=== PATIENT | female | born 1940 | race Caucasian/White ===

== ENCOUNTER → 2017-05-06 | Outpatient (CLI) | payer OTHER, MEDICARE ==
[~2017-05-06] MED LIST: ADULT LOW DOSE81 MG PO; ALBUTEROL INH; CARVEDILOL12.5 MG PO; CITRACAL + BON1 EACH PO; CO Q-10100 MG PO; COZAAR 25MG TAB25 M1 PO; COZAAR100 MG PO; CRESTOR10 MG PO; CRESTOR20 MG PO; GLUCOSAMINE1000 MG PO; HYDROCODONE-AP1 EAC6 PO; IBUPROFEN 800800 M1 PO; LASIX 20 MG TAB20 MG PO; NORVASC5 MG PO; PLAVIX 75 MG TA75 MG PO; RANITIDINE 150150 MG PO; SAVELLA12.5 MG PO; TOPROL XL50 MG PO
== END ==
LOC: NUC 08:06
DX: I25.10 Atherosclerotic heart disease of native coronary artery without angina pectoris (principal); Z82.49 Family history of ischemic heart disease and other diseases of the circulatory system

== ENCOUNTER → 2018-05-12 | Outpatient (CLI) | payer OTHER, MEDICARE ==
--- NOTE | ~2018-05-12 | 2DMMODE ---
[facility] [employer] [place] [address] 2 D/M-MODE ECHOCARDIOGRAM Name: FELISHA VICENTE Room #: REG [facility]#: [id number] Admission: 05/12/18 Attend Phys: Jim Tolentino MD Discharge: Date of : 36 Date of Service: 05/12/18 1419 Report #: [id number] THIS REPORT FOR: //name// APPROVED REPORT Study performed: 05/12/2018 13:00:45 EXAM: Comprehensive 2D, Doppler, and color-flow Echocardiogram Patient Location: Echo lab Status: routine BSA: 1.55 HR: 60 bpm BP: 151/60 mmHg Other Information Study Quality: Good Indications CAD Hypertension/HDD 2D Dimensions RVDd: 24.57 mm LVEF(%): 69.73 (>50%) IVSd: 12.65 (7-11mm) LVOT Diam: 20.95 (18-24mm) LVDd: 37.93 mm PWd: 9.11 (7-11mm) Ascending Ao: 27.62 (22-36mm) LVDs: 23.28 (25-40mm) Aortic Root: 28.15 mm IVC: 18.00 mm Vo's LVEF: 69.73 % Volumes Left Atrial Volume (Systole) Single Plane 4CH: 37.04 mL Single Plane 2CH: 41.24 mL LA ESV Index: 29.00 mL/m2 Aortic Valve AoV Peak Brooks.: 1.55 m/s AO Peak Gr.: 9.60 mmHg LVOT Max P.93 mmHg LVOT Max V: 0.99 m/s BASIL Vmax: 2.20 cm2 Mitral Valve E/A Ratio: 0.6 MV Decel. Time: 300.36 ms [facility] [address] [place] [address] 2 D/M-MODE ECHOCARDIOGRAM Name: FELISHA VICENTE Room #: [facility]#: [id number] Admission: 05/12/18 Attend Phys: Jim Tolentino MD Discharge: Date of : 36 Date of Service: 05/12/18 1419 Report #: [id number] MV E Max Brooks.: 0.90 m/s MV A Brooks.: 1.42 m/s MV PHT: 87.10 ms IVRT: 141.87 ms Pulmonary Valve PV Peak Brooks.: 1.16 m/s PV Peak Gr.: 5.41 mmHg Pulmonary Vein P Vein S: 0.54 m/s P Vein A: 0.49 m/s P Vein D: 0.28 m/s P Vein A Dur.: 141.9 msec P Vein S/D Ratio: 1.93 Tricuspid Valve TR Peak Brooks.: 2.44 m/s RAP Estimate: 5.00 mmHg TR Peak Gr.: 23.88 mmHg PA Pressure: 29.00 mmHg Left Ventricle The left ventricle is normal size. There is normal left ventricular wall thickness. The left ventricular systolic function is normal. The left ventricular ejection fraction is within the normal range. LVEF is 60-65%. Mild diastolic dysfunction is present (impaired relaxation pattern). Right Ventricle The right ventricle is normal size. The right ventricular systolic function is normal. Atria The left atrium size is normal. The right atrium size is normal. Aortic Valve Aortic valve is mildly calcified. No aortic regurgitation is present. There is no aortic valvular stenosis. Mitral Valve Moderate mitral annular calcification. Trace mitral regurgitation. No evidence of mitral valve stenosis. Tricuspid Valve The tricuspid valve is normal in structure. Trace tricuspid regurgitation. PAP is estimated at 29 mmHg. Pulmonic Valve [address] [address] 2 D/M-MODE ECHOCARDIOGRAM Name: FELISHA VICENTE Room #: REG [facility]#: [id number] Admission: 05/12/18 Attend Phys: Jim Tolentino MD Discharge: Date of : 36 Date of Service: 05/12/18 1419 Report #: [id number] The pulmonary valve is normal in structure. Mild pulmonic regurgitation. Great Vessels The aortic root is normal in size. IVC is normal in size and collapses >50% with inspiration. Pericardium There is no pericardial effusion. <Conclusion> The left ventricle is normal size. There is normal left ventricular wall thickness. The left ventricular systolic function is normal. Mild diastolic dysfunction is present (impaired relaxation pattern). The right ventricle is normal size. The left atrium size is normal. Aortic valve is mildly calcified. Moderate mitral annular calcification. Trace mitral regurgitation. Trace tricuspid regurgitation. PAP is estimated at 29 mmHg. <ELECTRONICALLY SIGNED> By: Jim Tolentino MD 05/12/18 1419 1419 1419 Jim Tolentino MD /INF
== END ==
LOC: CV 07:02
DX: I25.10 Atherosclerotic heart disease of native coronary artery without angina pectoris (principal); I10 Essential (primary) hypertension; I34.8 Other nonrheumatic mitral valve disorders

== ENCOUNTER 2018-06-20 11:55 | Emergency (ER) | payer OTHER, MEDICARE ==
[~2018-06-20] VITALS: Ht 152.4 cm; Wt 65.8 kg
[2018-06-20] MEDS ORDERED: MORPHINE SULFAT15 M3 PO (12:21)
== END 2018-06-20 12:53 | disposition home or self-care (01) ==
LOC: ER 11:55
DX: S81.802A Unspecified open wound, left lower leg, initial encounter (principal); I25.10 Atherosclerotic heart disease of native coronary artery without angina pectoris; E78.5 Hyperlipidemia, unspecified; M79.7 Fibromyalgia; I11.0 Hypertensive heart disease with heart failure; I50.32 Chronic diastolic (congestive) heart failure; I65.29 Occlusion and stenosis of unspecified carotid artery; I73.9 Peripheral vascular disease, unspecified; Z98.890 Other specified postprocedural states; Z90.49 Acquired absence of other specified parts of digestive tract; W20.8XXA Other cause of strike by thrown, projected or falling object, initial encounter; Y92.89 Other specified places as the place of occurrence of the external cause; Y93.89 Activity, other specified; Y99.8 Other external cause status

== ENCOUNTER → 2019-05-04 | Outpatient (CLI) | payer OTHER, MEDICARE ==
[~2019-05-04] MED LIST changes: +MORPHINE SULFAT15 M3 PO
== END ==
LOC: NUC 11:39
DX: I25.10 Atherosclerotic heart disease of native coronary artery without angina pectoris (principal); I11.0 Hypertensive heart disease with heart failure; I50.9 Heart failure, unspecified; I44.7 Left bundle-branch block, unspecified; E78.5 Hyperlipidemia, unspecified; I73.9 Peripheral vascular disease, unspecified; Z87.891 Personal history of nicotine dependence; Z79.899 Other long term (current) drug therapy; Z88.1 Allergy status to other antibiotic agents; Z88.8 Allergy status to other drugs, medicaments and biological substances

== ENCOUNTER 2019-05-18 11:32 | Inpatient (IN) | payer OTHER, MEDICARE ==
[~2019-05-18] VITALS: Ht 154.9 cm; Wt 52.6 kg
[~2019-05-18 11:32] MED LIST changes: +CRESTOR40 MG PO
[2019-05-18 11:33] VITALS: BP 125/44
[2019-05-18 11:52] LABS: URINE BILIRUBIN NEGATIVE (Negative); URINE BLOOD 1+ (Negative); URINE CLARITY SL CLOUDY; URINE GLUCOSE-RANDOM* NEGATIVE (Negative); URINE KETONES NEGATIVE (Negative); URINE LEUKOCYTES-REFLEX TRACE (Negative); URINE PROTEIN (DIPSTICK) 1+ (Negative); URINE UROBILINOGEN 0.2 E.U./dl (0.2-1.0)
[2019-05-18 11:53] LABS: URINE COLOR DARK YELLOW; URINE NITRITE-REFLEX POSITIVE (Negative)
[2019-05-18] MEDS ORDERED: BACTRIM DS TAB1 EACH PO (11:55)
[2019-05-18 12:00] LABS: AMORPHOUS URATES Few /LPF (None Seen); HYALINE CASTS 0-3 Few /LPF (None Seen); SQUAMOUS None Seen /LPF (0-3); URINE RBC 0-2 Rare /HPF (0-2); URINE WBC-REFLEX 0-5 Rare /HPF (0-5)
[2019-05-18 12:16] LABS: HEMATOCRIT 26.8 % (37.0-47.0); HEMOGLOBIN 8.6 gm/dL (12.0-15.0); MCH 32.5 pg (26.0-34.0); MCHC 32.2 g/dL (28.0-37.0); MCV 100.9 fL (80.0-100.0); RBC 2.65 mil/uL (4.20-5.00); RDW 15.3 % (10.5-14.5); WBC 24.3 thou/uL (4.0-11.0)
[2019-05-18 12:25] LABS: ANION GAP 15 mmol/L (7-16); BUN 82 mg/dL (7-18); CALCIUM 8.7 mg/dL (8.5-10.1); CHLORIDE 110 mmol/L (98-107); CO2 15 mmol/L (21-32); CREATININE 3.9 mg/dL (0.6-1.0); GLUCOSE 89 mg/dL (74-106); POTASSIUM 4.7 mmol/L (3.5-5.1); SODIUM 140 mmol/L (136-145)
[2019-05-18 12:33] LABS: TROPONIN-I <0.06 ng/mL (<0.06)
[2019-05-18 13:20] VITALS: BP 100/41
[2019-05-18] MEDS ORDERED: IBUPROFEN 800800 M1 PO (13:43)
[2019-05-18 14:05] VITALS: BP 111/50
[2019-05-18 14:48] LABS: URINE POTASSIUM-RANDOM* 30.4 mmol/L
--- NOTE | 2019-05-18 18:40 | NUR ---
PT CARE ASSUMED APPROX 1400 FROM ED. PT ALERT AND ORIENTED X4. DENIES PAIN AND SOA. VSS. IVF RUNNING. CHANGED AND THEN RESTARTED. UP WITH STEADY GAIT. PT REPORTS VISION PROBLEMS BUT NOT A SIGNIFICANT DEFICIT. SHE REPORTS "I STILL DRIVE." ORDERS IN. SPOUSE AT BEDSIDE ON ARRIVAL. NO ONE AT BEDSIDE AT THIS TIME. PT DENIES QUESTIONS OR CONCERNS REGARDING ADMISSION OR POC. BS MANAGED WITH SSI. NO DISTRESS NOTED.
[2019-05-18 19:51] VITALS: BP 114/36
[2019-05-19 00:50] VITALS: BP 117/41
[2019-05-19 03:46] VITALS: BP 139/42
--- NOTE | 2019-05-19 04:33 | NUR ---
RECEIVED PT'S CARE AT 1900; PT. ON BED; DAUGHTER AT THE BED SIDE; AOX4; C/O HEADACHE; ACETAMINOPHEN GIVEN PER MORNING NURSE; PAIN RE-ASSESSMENT PT. ST. NO HEADACHE; DURING ASSESSMENT NO C/O PAIN; DENIES SOB; ST. ABLE TO AMBULATE WITHOUT AIDS; EDUCATED ABOUT FALL PREVENTION; ST. UNDERSTANDING; REQUESTED PRN SLEEPING MEDICATION; GIVEN; ABLE TO REST MOST OF THE NIGHT WITH EYES CLOSE; SCD'S APPLIED; ASSESSMENT CHARGED; FOLLOWING POC; MONITORING; WILL PASS ON REPORT.
[2019-05-19 05:58] LABS: FIBRINOGEN 244.2 mg/dL (210-360); INR 1.1; PROTIME 11.7 Seconds (9.3-11.4)
[2019-05-19 08:24] LABS: ABSOLUTE RETIC COUNT 0.0325 10^6/uL; OBSERVED RETIC COUNT 1.49 % (0.6-2.6)
[2019-05-19 08:25] LABS: % SATURATION 59 % (20-39); IRON 114 ug/dL (50-170); TIBC 192 ug/dL (250-450)
[2019-05-19 08:28] LABS: ALBUMIN 2.6 g/dL (3.4-5.0); CALCIUM 7.5 mg/dL (8.5-10.1); CREATININE 3.5 mg/dL (0.6-1.0); POTASSIUM 4.2 mmol/L (3.5-5.1); TOTAL BILIRUBIN 0.1 mg/dL (<0.1-1.0); TOTAL PROTEIN 5.4 g/dL (6.4-8.2)
--- NOTE | 2019-05-19 08:29 | EKG ---
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1940 Requested By: Guzman Graham Order Number: [id number] MD: Lennox Walters Measurements Intervals [place] Rate: 55 P: 62 PA: 205 QRS: -28 QRSD: 160 T: 89 QT: 482 QTc: 461 Interpretive Statements Sinus rhythm Left bundle branch block Compared to ECG 12/08/2014 19:53:29 No significant changes Electronically Signed On 05-19-2019 8:29:46 CDT by Lennox Walters [email or web address] ��������������������������������������������� <ELECTRONICALLY SIGNED> ���������������������������������������� By: Lennox Walters MD, [facility] ��������������������������������������������� 05/19/19 0829 1155 1155 Lennox Walters MD, FAC /EPI
[2019-05-19 08:53] LABS: FOLIC ACID 11.2 ng/mL (8.6-58.9)
[2019-05-19 08:58] VITALS: BP 116/38
[2019-05-19 10:06] LABS: HEMOGLOBIN 7.5 g/dL (11.1-15.9)
[2019-05-19 12:30] VITALS: BP 126/45
--- NOTE | 2019-05-19 14:12 | NUR ---
AAOX4. DR. MORA HAS OKAYED TRANSFER TO MED SURG. WILL DC TELEMETRY. REPORT CALLED TO Gerry PECK RN. PATIENT HAS NOTIFIED FAMILY. WILL TX BY IOANA.
--- NOTE | 2019-05-19 15:16 | NUR ---
PT TRANSFERRED FROM TO ROOM 427 AT 14:40 IN STABLE CONDITION VIA WHEELCHAIR. VSS. DENIES PAIN OR CONCERNS AT THIS TIME. ASSESSMENT CHARTED. A&O,X4. UP AD ALEXIS TO BATHROOM. PT USED BATHROOM UPON ARRIVAL AND CURRENTLY IN BED. WILL CONTINUE TO MONITOR UNTIL EOS.
[2019-05-19 21:20] VITALS: BP 140/44
--- NOTE | 2019-05-20 04:49 | NUR ---
ASSUMED CARE AT 1900, ASSESSMENT COMPLETED. PT DENIES PAIN, NAUSEA, OR SOB WHILE AT REST. SHE DOES REPORT MID-STERNUM PAIN WITH RIGOROUS ACTIVITY, SUCH USING STAIRS. BLE HAVE 1+ MILDLY PITTING EDEMA, AND LEGS ARE TENDER WHEN TOUCHED. IV BICARB INFUSING OVERNIGHT; TUBING WAS LEAKING AFTER PT GOT UP TO TOILET DURING THE NIGHT, CHANGED J-LOOP AND DRESSING, CHANGED IV TUBING, AND NO FURTHER ISSUES. UA CULTURE CAME BACK NEGATIVE FOR BACTERIAL GROWTH. NO OTHER CONCERNS, WILL CONTINUE TO MONITOR.
[2019-05-20 05:06] LABS: HEMATOCRIT 20.6 % (37.0-47.0); RBC 2.08 mil/uL (4.20-5.00)
[2019-05-20 05:07] LABS: ALBUMIN 2.6 g/dL (3.4-5.0); CREATININE 2.4 mg/dL (0.6-1.0); PHOSPHORUS 2.4 mg/dL (2.5-4.9); POTASSIUM 3.5 mmol/L (3.5-5.1)
[2019-05-20 05:09] LABS: HEMOGLOBIN 6.7 gm/dL (12.0-15.0); MCH 32.2 pg (26.0-34.0); MCHC 32.5 g/dL (28.0-37.0); RDW 14.6 % (10.5-14.5)
[2019-05-20 05:10] VITALS: BP 135/36
[2019-05-20 07:49] VITALS: BP 156/38
--- NOTE | 2019-05-20 11:04 | NUR ---
ASSESMENT COMPLETED. VSS. A/O. DENIES PAIN. NO NOTED SOA. NO NV. PT RESTING IN BED APPEARS COMFORTABLE. WILL CONT. TO MONITOR.
--- NOTE | 2019-05-20 13:10 | HC ---
[facility] [place] [address] CONSULTATION Name: FELISHA VICENTE Room #: 427-P ADM IN M.R.#: [id number] Admission: 05/18/19 ������������������ Attend Phys: Shamir Naranjo Discharge: ������������������ Date of : 38 Report #: [id number] THIS REPORT FOR: //name// CC: Jim Tolentino MD HISTORY OF PRESENT ILLNESS: The patient is a very pleasant, but slightly sleepy 78-year-old, because it is 7:15 in the morning, who was admitted for symptoms of UTI. We are consulted because of lymphocytosis. Yesterday on her lab, her hemoglobin was 8.6, white count 24.3, platelets 315. Note that the differential is pending. We have outside lab, though the patient was not aware of these abnormalities, from Dr. Cowna's office from 11/30/2017 with a white count of 15.2 with an absolute lymphocyte count elevated at 9900, also at that her creatinine was 0.79, hemoglobin 12.4, platelets 276. At a later date on 05/05/2019, white count was 27,000; hemoglobin 9.6; MCV 100; platelets 364; creatinine 2.84. Total bilirubin was normal at less than 0.2 and on the differential they talked about lymphocytosis consistent with both mature and immature appearing lymphocytes. They suggested flow cytometry. They also mentioned the macrocytic anemia. Thyroid panel at that time was normal. The patient states that she has been feeling poorly for about the last month or so. Denies any fevers or chills. Does feel sort of tired, not really shortness of breath. No trouble moving her air. No mouth sores. No trouble swallowing, no real abdominal pain. Appetite has been off a little bit. No arm or leg swelling. No new skin rashes. She says no one else has been sick at home, specifically her . SOCIAL HISTORY: She is retired, used to work at [employer] in the office. Yet to clarify smoking and alcohol history in the past. Did have a dog that at home a while back. PAST MEDICAL HISTORY: Reportedly includes peripheral arterial disease with stents by Dr. Wally Giordano, history of a stress test maybe about a month ago with Dr. Jim Tolentino who did not like changing any of her medications. Also, history of hypertension, hyperlipidemia, fibromyalgia, possible chronic diastolic heart failure, history of lumbar vertebral fusion in 1994. Also, section in the past, cholecystectomy in 1983. MEDICATIONS: At this time in the hospital include aspirin 81 mg daily, clopidogrel 75 daily, carvedilol 12.5 b.i.d., insulin on a sliding scale, heparin 5000 units t.i.d., Tylenol p.r.n., Ambien 5 mg at bedtime p.r.n., MiraLax 17 grams daily, nitroglycerin p.r.n., Zofran p.r.n. [address] [address] CONSULTATION Name: FELISHA VICENTE Room #: 427-P [facility] IN M.R.#: [id number] Admission: 05/18/19 ������������������ Attend Phys: Shamir Naranjo Discharge: ������������������ Date of : 36 Report #: [id number] LABORATORY DATA: Here in the hospital includes BUN of 82, creatinine of 3.9, glucose of 201. Lactic acid 0.7. INR 1.1, protime 11.7, fibrinogen 244.2. White count 24.3, hemoglobin 8.6, MCV 100.9, RDW 15.3, platelets 315. Differential pending. Retic count pending. Flow cytometry pending, ferritin pending, B12 pending, folate pending. Erythropoietin pending. UA showed positive for nitrite, 10-30 bacteria, rare white cell. PHYSICAL EXAMINATION: GENERAL: The patient appears her stated age. VITAL SIGNS: Height is 5 feet 1 inch, 154.9 cm. Weight 116 pounds or 52.7 kilograms. Blood pressure is 139/42, O2 sat 96%, respirations 18, pulse 64, temperature afebrile at 97.9. MOOD: The patient is pleasant. NEUROLOGIC: Speech and thought pattern normal for a sleepy 78-year-old, moving extremities. Face is symmetrical. LUNGS: Clear anteriorly without any wheezes, rhonchi, is symmetrical, unlabored. HEART: Appears regular rate. No definite murmur. LYMPHATICS: No enlarged lymph nodes in the supraclavicular, cervical, right axillary region. There may be a small one in the left axilla. ABDOMEN: Slightly obese. No masses. EXTREMITIES: Without clubbing, cyanosis. There may be trace edema. ASSESSMENT AND PLAN: 1. 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 Flow cytometry pending. We will also check IgG level. As an outpatient, could consider checking cytogenetics and also CT scans. 2. Anemia, maybe related to probable chronic lymphocytic leukemia or renal insufficiency. We will check iron panel, B12, folate, erythropoietin level. We will also check liver function test to rule out hemolysis, though outpatient total bilirubin recent was normal. 3. Chronic kidney disease, creatinine of 3.9, renal ultrasound does not appear to show obstruction. Defer to Dr. Christianson in Renal. 4. Possible urinary tract infection. Defer antibiotics to others. 5. Hyperlipidemia. Defer to others. 6. Chronic diastolic heart failure. Defer to others. 7. Fibromyalgia history. Defer to others. 8. Coronary artery disease with stents, on aspirin and also on Coreg. Defer to others. 9. Peripheral arterial disease with stents in the past. Defer to others. We will follow with you. ��������������������������������������������� <ELECTRONICALLY SIGNED> ���������������������������������������� By: Yann Butterfield MD ��������������������������������������������� 05/20/19 1310 0729 0846 Yann Butterfield MD /nt
[2019-05-20 16:45] VITALS: BP 145/37
[2019-05-20 19:17] VITALS: BP 141/39
--- NOTE | 2019-05-21 00:47 | NUR ---
ASSESSMENT COMPLETED. PT IS UP AD ALEXIS IN ROOM. DENIES ANY DYSPNEA OR DIZZINESS. NO S/SX OFANY DISTRESS.IVF INFUSING VIA LAC.AFEBRILE. MONITORING LABS.WILL CONTINUE WITH POC TILL EOS.
[2019-05-21 05:07] VITALS: BP 126/40
[2019-05-21 05:43] LABS: WBC 20.3 thou/uL (4.0-11.0)
[2019-05-21 05:45] LABS: HEMATOCRIT 20.7 % (37.0-47.0); HEMOGLOBIN 6.8 gm/dL (12.0-15.0); MCH 32.9 pg (26.0-34.0); MCHC 32.7 g/dL (28.0-37.0); MCV 100.8 fL (80.0-100.0); RBC 2.06 mil/uL (4.20-5.00); RDW 14.8 % (10.5-14.5)
[2019-05-21 05:59] LABS: ALBUMIN 2.4 g/dL (3.4-5.0); CREATININE 1.6 mg/dL (0.6-1.0); PHOSPHORUS 1.8 mg/dL (2.5-4.9); POTASSIUM 3.4 mmol/L (3.5-5.1)
[2019-05-21 07:24] VITALS: BP 144/39
--- NOTE | 2019-05-21 10:42 | HC ---
[facility] [place] [address] CONSULTATION Name: FELISHA VICENTE Room #: 427-P [facility] IN M.R.#: [id number] Admission: 05/18/19 ������������������ Attend Phys: Shamir Naranjo Discharge: ������������������ Date of : 38 Report #: [id number] THIS REPORT FOR: //name// CC: Ann Naranjo DATE OF SERVICE: 05/18/2019 REASON FOR PRESENTATION: Abnormal labs. REASON FOR CONSULTATION: Elevated creatinine. HISTORY OF PRESENT ILLNESS: This is a very well-known patient from a previous admission. She is known to have hypertension, peripheral vascular disease, coronary artery disease. She had an acute kidney injury back in 2016 and this has resolved. She recently reported to her primary care physician earlier this week that she has some urgency, frequency, weakness, nausea, frequent diarrhea. Laboratory values were tested and she was started on Bactrim. Followup labs revealed that the patient has an elevated white blood cell count and she was advised to come to the emergency room. After starting Bactrim, creatinine was found to be elevated at 3.9 mandating Nephrology consultation. The patient currently still has some frequency and urgency. She denies urinary retention. She does have some mild fever, no chills or rigors. No nausea or vomiting. She reported occasional diarrhea in the last few days. PAST MEDICAL HISTORY: 1. Hypertension. 2. Peripheral vascular disease. 3. Coronary artery disease. 4. Multiple coronary stents. 5. Post-hysterectomy. 6. Post-abdominal surgery with removal of a sigmoid mass. 7. Post bilateral stent. 8. Fibromyalgias. 9. Lumbar fusions. MEDICATIONS: 1. Aspirin. 2. Bactrim. 3. Losartan. 4. Lasix. 5. Carvedilol. 6. Amlodipine. 7. Crestor. SOCIAL HISTORY: She denies drug or alcohol abuse. She is retired. [facility] [address] [place] [address] CONSULTATION Name: FELISHA VICENTE Room #: 427-P [facility] IN .R.#: [id number] Admission: 05/18/19 ������������������ Attend Phys: Shamir Naranjo Discharge: ������������������ Date of : 38 Report #: [id number] FAMILY HISTORY: Significant for hypertension. REVIEW OF SYSTEMS: GENERAL: Significant for weakness and lethargy. CARDIOVASCULAR: No chest pain or palpitation. PULMONARY: No cough or hemoptysis. GASTROINTESTINAL: Significant for nausea, decreased oral intake, diarrhea. GENITOURINARY: As per history of present illness. SKIN: Chronic bilateral lower extremity edema. PHYSICAL EXAMINATION: GENERAL: When evaluated this evening, the patient was alert and oriented, in no apparent distress. VITAL SIGNS: Most recent set of vitals showed that the patient's pulse is 59, blood pressure 100/41. HEAD AND NECK: No jugular venous distention. CHEST: No crackles. CARDIOVASCULAR: No rub detected. ABDOMEN: Soft, nontender. LOWER EXTREMITIES: Chronic lower extremity edema. LABORATORY VALUES: Reviewed. Sodium is 140, potassium is 4.7, chloride is 110, carbon dioxide is 15, BUN is 82, creatinine is 3.5. White blood cell count is 24,000. UA with positive nitrite and white blood cell count. ASSESSMENT, IMPRESSION AND PLAN: 1. Acute kidney injury due to hypotension, combination of losartan and Bactrim. 2. Urinary tract infections. 3. Hypertension. 4. Peripheral vascular disease. 5. Abdominal surgery requiring bilateral ureteral stents and cystoscopy. This has happened in 2016. 6. The patient's acute kidney injury is well explained by the hypotension, the fact that she is on diuretics, losartan, Bactrim. I agree with holding all of her blood pressure medications. Appropriate acute kidney injury workup has been initiated. 7. The patient was started on antibiotic, pending her cultures. 8. Continue to avoid nephrotoxins. 9. Follow urine output. 10. Primary team is addressing her leukocytosis, pending further cultures. ��������������������������������������������� <ELECTRONICALLY SIGNED> ���������������������������������������� By: Jim Christianson MD ��������������������������������������������� 05/21/19 [phone] Jim Christianson MD /nt
--- NOTE | 2019-05-21 11:12 | NUR ---
Assume care of pt at 0700. Pt a&ox4. Up ad lenin in room. IVF infusing. Denies pain. Hg 6.8. Pt asymptomatic. Call light within reach. Pt calls appropriately. Will continue to monitor.
[2019-05-21 16:47] VITALS: BP 149/49
[2019-05-21 19:25] VITALS: BP 139/37
--- NOTE | 2019-05-22 02:30 | NUR ---
ASSESSMENT COMPLETED.PT'S HGB 6.8,PT ASYMPTOMATIC.PT ON THREE BLOOD THINNERS,JUICE STANDARDIZER ON DUTY NOTIFIED,ORDER NOTED TO PUT AM HEPARIN ON HOLD UNTIL SEEN BY HOSPITALIST IN THE AM.UP ADLIB IN ROOM.PT'S SISTER IN LAW CALLED FOR UPDATE STATED THAT SHE WILL CALL AGAIN IN THE AM.IVF INFUSING ORDERED.CALL LIGHT WITHIN REACH.
[2019-05-22 04:19] VITALS: BP 158/52
[2019-05-22 06:17] LABS: WBC 19.9 thou/uL (4.0-11.0)
[2019-05-22 06:19] LABS: HEMATOCRIT 20.5 % (37.0-47.0); HEMOGLOBIN 6.5 gm/dL (12.0-15.0); MCH 32.3 pg (26.0-34.0); MCHC 31.8 g/dL (28.0-37.0); MCV 101.7 fL (80.0-100.0); RBC 2.01 mil/uL (4.20-5.00); RDW 15.1 % (10.5-14.5)
[2019-05-22 06:35] LABS: ALBUMIN 2.5 g/dL (3.4-5.0); CALCIUM 7.2 mg/dL (8.5-10.1); CREATININE 1.3 mg/dL (0.6-1.0); PHOSPHORUS 1.5 mg/dL (2.5-4.9); POTASSIUM 3.7 mmol/L (3.5-5.1)
[2019-05-22 08:16] VITALS: BP 161/55
[2019-05-22 11:04] VITALS: BP 124/35; BP 165/56
[2019-05-22 15:00] VITALS: BP 165/56
[2019-05-22 16:08] VITALS: BP 161/55
--- NOTE | 2019-05-22 16:10 | NUR ---
BLOOD TRANSFUSION COMPLETED. PT TOLERATED WELL. DC ORDERS RECIEVED. WILL CONT. TO MONITOR.
[2019-05-22 16:39] LABS: HEMATOCRIT 26.7 % (37.0-47.0)
[2019-05-22 16:52] LABS: HEMOGLOBIN 8.5 gm/dL (12.0-15.0)
[2019-05-22 17:13] VITALS: BP 161/55
--- NOTE | 2019-05-24 17:06 | PATH ---
[facility] [address] [place] [address] PATHOLOGY RPT PROCEDURE Name: FELISHA VICENTE Room #: 427-P DIS IN M.R.#: [id number] ������������������ Admission: 05/18/19 ������������������ Date of : 38 Discharge: 05/22/19 Report #: [id number] Path Case #: [id number] [facility] Accession Number: [id number] . 01 Material submitted: . body - PERIPHERAL BLOOD . 02 Diagnosis: Please see included [facility] report [id number]. AZJ/05/23/2019 . 02 Electronically signed: . Ximena Barrios MD, Pathologist NPI- [id number] . 02 Microscopic: . Special studies report received from [facility], [address] [place] [address], [address], [place], [address], on case [id number], labeled with their number [id number], dated 05/23/2019. . Flow Cytometry: Hematologic Neoplasia Assessment . Clinical History Fatigue, UTI, elevated WBC . Indication for Study Evaluation for leukocytosis . Specimen Peripheral Blood . Viability 95% (7AAD exclusion) . 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 Comments Correlation with available clinical, laboratory, and morphologic data is recommended. If needed, FISH testing (CLL panel) and ZAP-70 testing are available. . Populations Analyzed Myeloid Blasts: 0.0% [place] [address] PATHOLOGY RPT PROCEDURE Name: FELISHA VICENTE Room #: 427-P DIS IN M.R.#: [id number] ������������������ Admission: 05/18/19 ������������������ Date of : 38 Discharge: 05/22/19 Report #: [id number] Path Case #: [id number] Abnormal B-cells: 77% Scatter properties compatible with small to intermediate cell size, cells characterized as: CD45+, CD5+, CD10-, CD11c+, CD19+, CD20+ (dim), CD22+ (dim), CD23+, CD38-/+, FMC7-, HLA-DR+, sIg/cIg lambda+ (dim) Remaining 10% B-cells: 0.0%, polytypic/polyclonal sIg light Lymphocytes: pattern T-cells: no significant abnormalities of the markers tested CD4+ T-cells: 3.9% (including 0.3% CD57+ cells) CD8+ T-cells: 2.3% (including 1.4% CD57+ cells) CD4:CD8: 1.7 NK cells: 0.2% Neutrophils: 12% No significant abnormalities of the markers tested Monocytes: 0.4% No significant abnormalities of the markers tested Eosinophils: 0.2% No relative increase Basophils: 0.1% No relative increase . . Morphologic Evaluation A slide was reviewed for clinical quality manager purposes only. . Specimen Description Total Cell Yield: 12.36 X 10 and 6 . Reagent(s) Used CD2, CD3, CD4, CD5, CD7, CD8, CD10, CD11b, CD11c, CD13, CD14, CD16, CD19, CD20, CD22, CD23, CD33, CD34, CD38, CD45, CD56, CD57, CD64, CD117, FMC-7, HLA-DR, kappa, lambda, CytoKappa, CytoLambda . at [facility]. Leah Camacho MD Pathologist . . Intended Use Flow cytometry is optimally used to immunophenotypically characterize abnormal populations when they are detected. Negative flow cytometry results do not exclude lymphoma or neoplasia. Possible false negative flow cytometry results may occur in, but are not limited to, the following: neoplastic cells in Hodgkin lymphoma are not typically adequately represented by routine clinical flow cytometry; neoplastic cells may be lost or inadequately represented due to degeneration, sample processing, sampling artifact, or patchy involvement; plasma cells are typically underrepresented by flow cytometry; immature cells/blasts may be [address] [address] PATHOLOGY RPT PROCEDURE Name: CINTHIARASTAFELISHA E Room #: 427-P DIS IN M.R.#: [id number] ������������������ Admission: 05/18/19 ������������������ Date of : 38 Discharge: 05/22/19 Report #: [id number] Path Case #: [id number] underrepresented due to hemodilution; myeloproliferative disorders and low grade myelodysplasia may not have immunophenotypic abnormalities or increased blasts. Correlation with all available clinical, laboratory, and morphologic data is always necessary to assess for the possibility of false negative flow cytometry results and to establish a diagnosis. Each marker in this analysis was used to assess for potential antigenic abnormalities or to evaluate detected abnormalities. . Disclaimer(s) This test was performed at [facility]. at [address], [address] - Toy Designer: Mike Dangelo MD. [facility] is a business unit of [employer] [facility] a wholly-owned subsidiary of [employer]. . Any image or images that accompany this report are footwear sales representative images only and should not be used to render a diagnosis. . This test was developed and its performance characteristics determined by [facility]. It has not been cleared or approved by the Food and Drug Administration (FDA). The FDA has determined that such clearance or approval is not necessary. . For inquiries, the physician may contact Lab: [phone] . A complete copy of the report is on file. . Professional services performed by [employer]. at [address], [place] [address]. Technical services performed by [employer]. at [address] [facility] [address], [place] [address]. . (AMJ 05/23/2019) . . 02 Pathologist provided ICD-10: R53.83, N39.0, D72.9 . 02 CPT . 377487 Specimen Comment: A courtesy copy of this report has been sent to Specimen Comment: [phone], . Specimen Comment: Report sent to / DR ADAME Performed at: 01 [facility] [address] [address], [place], [place] [id number] MD Junior Batista MD Phone: [phone] [address] [address] PATHOLOGY RPT PROCEDURE Name: FELISHA VICENTE Room #: 427-P [facility] IN M.R.#: [id number] ������������������ Admission: 05/18/19 ������������������ Date of : 38 Discharge: 05/22/19 Report #: [id number] Path Case #: [id number] Performed at: 02 [facility] [address], [place], [place] [id number] MD Dhaval Wren MD Phone: [phone]
--- NOTE | 2019-06-01 12:19 | HC ---
[facility] [place] [address] CONSULTATION Name: FELISHA VICENTE Room #: 427-P [facility] IN M.R.#: [id number] Admission: 05/18/19 ������������������ Attend Phys: Shamir Naranjo Discharge: 05/22/19 ������������������ Date of : 36 Report #: [id number] THIS REPORT FOR: //name// CC: Ann Naranjo DATE OF SERVICE: 05/20/2019 HISTORY OF PRESENT ILLNESS: The patient is doing well. She does not have chest pain. She denies headache or shortness of breath. Denies melena or hematochezia. Review of systems does not reveal weight loss, night sweats, or fatigue. PHYSICAL EXAMINATION: VITAL SIGNS: Blood pressure is 156/78, heart rate is 63, and temperature is 98.3. HEENT AND NECK: Supple. There is no cervical lymphadenopathy. HEART: Normal S1, S2. LUNGS: Clear. ABDOMEN: Soft. No splenomegaly on physical exam. LABORATORY DATA: White count 22.0, hemoglobin 6.7, and platelets 219. Differential pending. Ferritin 108. Folate 11.2. Vitamin B12 508. ASSESSMENT AND PLAN: 1. Anemia, most likely secondary to chronic renal insufficiency. Erythropoietin level pending. CLL is not excluded. 2. Leukocytosis. Workup is pending. The patient does not have any constitutional symptoms. Defer further workup to Dr. Butterfield. ��������������������������������������������� <ELECTRONICALLY SIGNED> ���������������������������������������� By: Kamlesh Swanson MD ��������������������������������������������� 06/01/19 1219 1902 Kamlesh Swansno MD /essie
== END 2019-05-22 17:00 | disposition home or self-care (01) | DRG 682 ==
LOC: ER 11:32 → 4E 13:01 → EROBS 13:01 → 2N 13:01 → ENTRNSPT 05-19 14:23 → EDTRNSPTSTS 05-19 14:26 → 4E 05-19 14:50 → ENTRNSPT 05-22 17:51
PROVIDERS: Emergency Medicine; Hospitalist; Internal Medicine Hematology & Oncology; Internal Medicine Nephrology; ADMIT Hospitalist
PROC: 30233N1 Transfusion of Nonautologous Red Blood Cells into Peripheral Vein, Percutaneous Approach (ICD-10-PCS; principal; 2019-05-22)
DX: N17.9 Acute kidney failure, unspecified (principal); E43 Unspecified severe protein-calorie malnutrition; C91.10 Chronic lymphocytic leukemia of B-cell type not having achieved remission; E46 Unspecified protein-calorie malnutrition; I50.32 Chronic diastolic (congestive) heart failure; N39.0 Urinary tract infection, site not specified; E87.0 Hyperosmolality and hypernatremia; E86.0 Dehydration; D64.9 Anemia, unspecified; I10 Essential (primary) hypertension; I25.10 Atherosclerotic heart disease of native coronary artery without angina pectoris; E78.5 Hyperlipidemia, unspecified; M79.7 Fibromyalgia; I73.9 Peripheral vascular disease, unspecified; N18.9 Chronic kidney disease, unspecified; Z68.21 Body mass index [BMI] 21.0-21.9, adult; Z98.891 History of uterine scar from previous surgery; Z79.1 Long term (current) use of non-steroidal anti-inflammatories (NSAID); Z95.5 Presence of coronary angioplasty implant and graft; Z90.710 Acquired absence of both cervix and uterus; Z98.1 Arthrodesis status
CPT/HCPCS: 10081; 10084; 10183

== ENCOUNTER → 2020-05-23 | Outpatient (CLI) | payer OTHER, MEDICARE ==
[~2020-05-23] MED LIST changes: +BACTRIM DS TAB1 EACH PO
== END ==
LOC: SJCVC 13:00
PROVIDERS: ATTEND Internal Medicine Cardiovascular Disease
DX: I44.7 Left bundle-branch block, unspecified (principal); R94.31 Abnormal electrocardiogram [ECG] [EKG]; I25.10 Atherosclerotic heart disease of native coronary artery without angina pectoris; I13.0 Hypertensive heart and chronic kidney disease with heart failure and stage 1 through stage 4 chronic kidney disease, or unspecified chronic kidney disease; N18.9 Chronic kidney disease, unspecified; I50.32 Chronic diastolic (congestive) heart failure; E78.00 Pure hypercholesterolemia, unspecified; K21.9 Gastro-esophageal reflux disease without esophagitis; E78.5 Hyperlipidemia, unspecified; Z79.82 Long term (current) use of aspirin; Z79.899 Other long term (current) drug therapy; Z87.891 Personal history of nicotine dependence

== ENCOUNTER → 2020-06-21 | Outpatient (CLI) | payer OTHER, MEDICARE ==
[~2020-06-21] MED LIST changes: +POTASSIUM20 PO
[2020-06-21 11:53] VITALS: BP 117/37; BP 121/34
--- NOTE | 2020-06-21 16:52 | NUR ---
IN FOR BLOOD TRANSFUSION FOR HGB 6.8. ADMISSION HISTORY AND ASSESSMENT COMPLETED. PATIENT'S PARTNER STAYED WITH HER THROUGHUOT TRANSFUSION. PATIENT STATED FEELING VERY TIRED AND SOB WITH EXERTION. T&C DONE. TRANFUSED ONE UNIT OF OPOS RBC'S AND TOLERATED WELL WITH NO ADVERSE REACTION NOTED. REMOVED IV AND DISMISSED IN STABLE CONDITION.
== END ==
LOC: OPONC 08:28
PROVIDERS: ATTEND Internal Medicine Hematology & Oncology
DX: C91.10 Chronic lymphocytic leukemia of B-cell type not having achieved remission (principal)
CPT/HCPCS: 91030; 95113

== ENCOUNTER → 2020-12-26 | Outpatient (CLI) | payer OTHER, MEDICARE ==
[~2020-12-26] MED LIST changes: +IMBRUVICA140 M1 PO
== END ==
LOC: SJCVCIMAG 12-05 07:54
PROVIDERS: ATTEND Internal Medicine Cardiovascular Disease
DX: I05.8 Other rheumatic mitral valve diseases (principal); R94.31 Abnormal electrocardiogram [ECG] [EKG]; I44.7 Left bundle-branch block, unspecified; I25.10 Atherosclerotic heart disease of native coronary artery without angina pectoris; E78.00 Pure hypercholesterolemia, unspecified; K21.9 Gastro-esophageal reflux disease without esophagitis; I13.0 Hypertensive heart and chronic kidney disease with heart failure and stage 1 through stage 4 chronic kidney disease, or unspecified chronic kidney disease; I50.32 Chronic diastolic (congestive) heart failure; N18.9 Chronic kidney disease, unspecified; I73.9 Peripheral vascular disease, unspecified; Z98.890 Other specified postprocedural states; Z88.8 Allergy status to other drugs, medicaments and biological substances; Z79.82 Long term (current) use of aspirin; Z79.899 Other long term (current) drug therapy; Z87.891 Personal history of nicotine dependence

== ENCOUNTER 2021-06-10 00:08 | Emergency (ER) | payer OTHER, MEDICARE ==
[~2021-06-10] VITALS: Ht 154.9 cm; Wt 59.0 kg
[2021-06-10 00:59] LABS: URINE BILIRUBIN NEGATIVE (Negative); URINE BLOOD 2+ (Negative); URINE CLARITY CLEAR; URINE COLOR YELLOW; URINE GLUCOSE-RANDOM* NEGATIVE (Negative); URINE KETONES NEGATIVE (Negative); URINE LEUKOCYTES-REFLEX NEGATIVE (Negative); URINE PROTEIN (DIPSTICK) 3+ (Negative); URINE SPECIFIC GRAVITY 1.025 (1.005-1.035)
[2021-06-10 01:07] LABS: BACTERIA-REFLEX >30 Many /HPF (None Seen); CELLULAR CASTS 4-10 Moderate /LPF (None Seen); CRYSTALS None Seen /LPF (None Seen); HYALINE CASTS 0-3 Few /LPF (None Seen); MUCUS 4-6 Moderate strn/LPF (None Seen); SQUAMOUS 4-10 Moderate /LPF (0-3); URINE NITRITE-REFLEX POSITIVE (Negative); URINE RBC 1-2 Rare /HPF (NONE SEEN); URINE WBC-REFLEX 6-15 Few /HPF (0-5)
[2021-06-10] MEDS ORDERED: ROSUVASTATIN CA40 MG PO (01:10)
[2021-06-10] MEDS ORDERED: CEPHALEXIN500 MG PO (01:44)
[2021-06-10 03:56] VITALS: BP 132/76
== END 2021-06-10 03:56 | disposition home or self-care (01) ==
LOC: ER 00:08
PROVIDERS: Emergency Medicine
DX: N39.0 Urinary tract infection, site not specified (principal); I10 Essential (primary) hypertension; M79.7 Fibromyalgia; Z90.49 Acquired absence of other specified parts of digestive tract; Z98.890 Other specified postprocedural states

== ENCOUNTER 2021-06-12 13:50 | Inpatient (IN) | payer OTHER, MEDICARE ==
[~2021-06-12] VITALS: Ht 154.9 cm; Wt 55.7 kg
[~2021-06-12 13:50] MED LIST changes: +CEPHALEXIN500 MG PO; +ROSUVASTATIN CA40 MG PO
[2021-06-12 13:51] VITALS: BP 142/53
[2021-06-12 15:31] LABS: ABSOLUTE NEUTROPHILS 2.8 thou/uL (1.4-8.2); BASOPHILS 0.2 % (0.0-2.0); HEMATOCRIT 32.3 % (37.0-47.0); HEMOGLOBIN 10.7 gm/dL (12.0-15.0); LYMPHOCYTES 11.9 % (24.0-44.0); MCH 30.7 pg (26.0-34.0); MCHC 33.1 g/dL (28.0-37.0); MCV 92.6 fL (80.0-100.0); MONOCYTES 8.8 % (1.0-8.0); PLATELET COUNT 138 thou/uL (150-400); POLYS 79.1 % (36.0-66.0); RBC 3.49 mil/uL (4.20-5.00); RDW 16.1 % (10.5-14.5); WBC 3.6 thou/uL (4.0-11.0)
[2021-06-12 15:37] LABS: CALCIUM 7.7 mg/dL (8.5-10.1); CREATININE 1.5 mg/dL (0.6-1.0); POTASSIUM 3.9 mmol/L (3.5-5.1)
[2021-06-12 15:48] LABS: ALBUMIN 2.3 g/dL (3.4-5.0); MAGNESIUM 1.9 mg/dL (1.8-2.4); TOTAL BILIRUBIN 0.4 mg/dL (0.2-1.0); TOTAL PROTEIN 5.4 g/dL (6.4-8.2); TROPONIN-I 0.1 ng/mL (<0.06)
[2021-06-12 17:06] LABS: BE(vivo) -5.4 mmol/L (-2 to +3); HCO3 17.8 mmol/L (22.0-26.0); PCO2 27.8 mmHg (35.0-45.0); PO2 63.8 mmHg (80.0-100.0); pH 7.424 (7.360-7.450); sO2 93.2 % (92.0-98.0)
--- NOTE | 2021-06-12 19:14 | NUR ---
REPORT GIVEN TO FEDE MARLEY AT THIS TIME
[2021-06-13 05:14] LABS: HEMATOCRIT 31.6 % (37.0-47.0); HEMOGLOBIN 10.5 gm/dL (12.0-15.0); MCH 30.7 pg (26.0-34.0); MCHC 33.2 g/dL (28.0-37.0); MCV 92.5 fL (80.0-100.0); RBC 3.42 mil/uL (4.20-5.00); RDW 15.6 % (10.5-14.5); WBC 2.8 thou/uL (4.0-11.0)
[2021-06-13 05:23] LABS: CALCIUM 7.7 mg/dL (8.5-10.1); CREATININE 1.6 mg/dL (0.6-1.0); POTASSIUM 3.8 mmol/L (3.5-5.1)
[2021-06-13 06:49] VITALS: BP 112/37
--- NOTE | 2021-06-13 07:10 | EKG ---
[address] [place] [address] ELECTROCARDIOGRAM REPORT Name: FELISHA VICENTE Room #: 170-6 ADM IN M.R.#: [id number] Admission: 06/12/21 Attend Phys: Burt Stern MD Discharge: Date of : 38 Report #: [id number] [facility] ED Test Date: 2021-06-12 Test Time: 17:09:15 Pat Name: FELISHA VICENTE Department: Room: [facility] Gender: F Leather Lacer: ANY : 1940 Requested By: Jazmín Thibodeaux Order Number: [id number] MD: Claude Clayton Measurements Intervals [place] Rate: 77 P: 11 IL: 182 QRS: -28 QRSD: 153 T: 67 QT: 460 QTc: 521 Interpretive Statements Sinus rhythm Left bundle branch block Compared to ECG 05/18/2019 11:55:55 No significant changes Electronically Signed On 06-13-2021 7:10:34 CDT by Claude Clayton [email or web address] <ELECTRONICALLY SIGNED> By: Claude Clayton MD, [facility] 06/13/21 0710 1709 170 Claude Clayton MD, FACC /EPI
[2021-06-13 11:17] VITALS: BP 166/65
[2021-06-13 16:18] VITALS: BP 146/55
--- NOTE | 2021-06-13 18:42 | NUR ---
assumed care of pt at 0700. pt forgetful, poor historian, but otherwise oriented to situation and pleasantly cooperative. up to bsc w/ 1 assist. requiring 5L NC to maintain spo2. good appetite. IVF infusing per order. afebrile. vitals stable. uneventful on telemetry. ID and pulm consulted and have seen patient. calls out appropriately. all isolation precautions in place.
[2021-06-13 19:16] VITALS: BP 136/44
--- NOTE | 2021-06-13 21:45 | NUR ---
PT RESTING IN BED. O2 NC. PT SOA WITH TALKING AND EXERTION. STEADY GAIT, DUSKY SKIN TONE. PT ALERT TO SELF SITUATION, DIFFICULTY WITH WORD FINDING AND COMPLETING THOUGHTS. TALKED ON PHONE WITH AND GRANDDAUGHTER. BED ALARM ON. MRSA OBTAINED. NEED UA, PT HAD STOOL IN URINE THIS EVENING. PT DELCINED SOCKS AND HS SNACK. COVID IV MEDS STARTED THIS EVENING. BED ALARM ON.
[2021-06-14 05:22] VITALS: BP 121/46
[2021-06-14 05:44] LABS: ABSOLUTE NEUTROPHILS 3.5 thou/uL (1.4-8.2); BASOPHILS 0.2 % (0.0-2.0); HEMATOCRIT 30.7 % (37.0-47.0); HEMOGLOBIN 10.2 gm/dL (12.0-15.0); LYMPHOCYTES 13.8 % (24.0-44.0); MCH 30.7 pg (26.0-34.0); MCHC 33.1 g/dL (28.0-37.0); MCV 92.8 fL (80.0-100.0); MONOCYTES 6.5 % (1.0-8.0); PLATELET COUNT 159 thou/uL (150-400); POLYS 79.5 % (36.0-66.0); RBC 3.31 mil/uL (4.20-5.00); RDW 15.6 % (10.5-14.5); WBC 4.4 thou/uL (4.0-11.0)
[2021-06-14 05:50] LABS: INR 1.02; PROTIME 11.1 Seconds (10.5-12.1)
[2021-06-14 06:13] LABS: URINE BILIRUBIN NEGATIVE (Negative); URINE BLOOD 1+ (Negative); URINE CLARITY CLEAR; URINE COLOR YELLOW; URINE GLUCOSE-RANDOM* NEGATIVE (Negative); URINE KETONES NEGATIVE (Negative); URINE LEUKOCYTES-REFLEX NEGATIVE (Negative); URINE NITRITE-REFLEX NEGATIVE (Negative); URINE PROTEIN (DIPSTICK) 2+ (Negative); URINE SPECIFIC GRAVITY 1.025 (1.005-1.035)
[2021-06-14 06:19] LABS: ANION GAP 16 mmol/L (7-16); BUN 39 mg/dL (7-18); CALCIUM 7.5 mg/dL (8.5-10.1); CHLORIDE 109 mmol/L (98-107); CO2 17 mmol/L (21-32); CREATININE 1.7 mg/dL (0.6-1.0); DIRECT BILIRUBIN < 0.1 mg/dL (<0.1-0.2); GLUCOSE 159 mg/dL (74-106); POTASSIUM 3.6 mmol/L (3.5-5.1); SGOT 254 U/L (15-37); SGPT 225 U/L (30-65); SODIUM 142 mmol/L (136-145); TOTAL BILIRUBIN 0.2 mg/dL (0.2-1.0); TOTAL PROTEIN 5.1 g/dL (6.4-8.2)
[2021-06-14 06:27] LABS: COARSE GRANULAR CASTS 0-3 Few /LPF (None Seen); SQUAMOUS 0-3 Few /LPF (0-3)
[2021-06-14 06:28] LABS: BACTERIA-REFLEX 1-9 Few /HPF (None Seen); CRYSTALS None Seen /LPF (None Seen); URINE RBC 1-2 Rare /HPF (NONE SEEN); URINE WBC-REFLEX 0-5 Rare /HPF (0-5)
[2021-06-14 07:42] VITALS: BP 146/50
[2021-06-14 11:13] VITALS: BP 139/51
[2021-06-14 14:52] LABS: BE(vivo) -8.6 mmol/L (-2 to +3); HCO3 14.2 mmol/L (22.0-26.0); PCO2 22.2 mmHg (35.0-45.0); PO2 52.2 mmHg (80.0-100.0); pH 7.424 (7.360-7.450); sO2 88.7 % (92.0-98.0)
[2021-06-14 15:19] VITALS: BP 150/52
--- NOTE | 2021-06-14 18:05 | NUR ---
RN ASSUMED PT'S CARE AT 0700AM, PT IS A&OX2 ( PERSON AND PLACE), PT IS CONFUSED AT TIME, PT IS ON ISOLATION FOR POSITIVE COVID, RN HAS CALLED HOSPITAL AND DR FRAZIER ABOUT PT REQUEST MORE O2 ( INCRESE O2 TO 13L/MIN/NC FROM O2 6L ) AND ABNORMAL ABG RESULTS, NEW ORDER TO START IV ABX AND APPLY OPTIFLOW O2 45L/MIN/NC ,O2 80%, TO KEEP O2SAT AT 92-94%,PT'S SOB HAS IMPROVED, RN WILL REPORT TO NEXT SHIFT TO KEEP EYES ON PT.
[2021-06-14 19:58] VITALS: BP 147/59
[2021-06-15] VITALS (9 sets, daily range): BP systolic 136–196; BP diastolic 44–61
[2021-06-15 05:35] LABS: ABSOLUTE NEUTROPHILS 5.8 thou/uL (1.4-8.2); HEMATOCRIT 32.1 % (37.0-47.0); HEMOGLOBIN 10.5 gm/dL (12.0-15.0); LYMPHOCYTES 6.2 % (24.0-44.0); MCHC 32.8 g/dL (28.0-37.0); MCV 91.5 fL (80.0-100.0); MONOCYTES 5.1 % (1.0-8.0); PLATELET COUNT 181 thou/uL (150-400); POLYS 88.7 % (36.0-66.0); RBC 3.51 mil/uL (4.20-5.00); RDW 15.8 % (10.5-14.5); WBC 6.5 thou/uL (4.0-11.0)
[2021-06-15 05:51] LABS: ALBUMIN 2.1 g/dL (3.4-5.0); ANION GAP 12 mmol/L (7-16); BUN 40 mg/dL (7-18); CALCIUM 7.3 mg/dL (8.5-10.1); CHLORIDE 107 mmol/L (98-107); CO2 16 mmol/L (21-32); CREATININE 1.5 mg/dL (0.6-1.0); DIRECT BILIRUBIN < 0.1 mg/dL (<0.1-0.2); GLUCOSE 157 mg/dL (74-106); POTASSIUM 3.4 mmol/L (3.5-5.1); SGOT 164 U/L (15-37); SGPT 185 U/L (30-65); SODIUM 135 mmol/L (136-145); TOTAL BILIRUBIN 0.3 mg/dL (0.2-1.0); TOTAL PROTEIN 5.1 g/dL (6.4-8.2)
[2021-06-15 06:06] LABS: HIV ANTIBODY Non Reactive (Non Reactive)
[2021-06-15 14:11] LABS: BE(vivo) -6.5 mmol/L (-2 to +3); HCO3 16.8 mmol/L (22.0-26.0); PCO2 27.2 mmHg (35.0-45.0); pH 7.409 (7.360-7.450); sO2 86.9 % (92.0-98.0)
[2021-06-15 14:12] LABS: PO2 50.5 mmHg (80.0-100.0)
--- NOTE | 2021-06-15 15:20 | NUR ---
PT ARRIVED ON THE UNIT AT 1510, PT IS ON OPTI ISABELA AT 100% AND BREATHING 22/MIN HAND OFF GIVEN FROM 3W NURSE CHRISTINE
--- NOTE | 2021-06-15 16:27 | NUR ---
RN ASSUMED PT'S CARE AT 0700-1500PM, PT IS A&OX2 ( PERSON AND PLACE), PT IS CONFUSED AT TIME, PT IS CONTINUING OPTIFLOW O2 45L/MIN, O2 95%, PT'S O2SAT IS 96-98% AT RESTING , PT'S O2SAT IS 88-91%, SOB AT ACTIVITIES, PT IS ON ISOLATION FOR POSITIVE COVID, RN RECEIVED ORDER TO TANSFER PT TO ICU , RN HAS GIVING REPORT , RN SENT PT TO ICU AT 1500PM, RN CANNOT REACH PT'S FAMILY ABOUT PT TRANSFER TO ICU.
[2021-06-16] VITALS (15 sets, daily range): BP systolic 114–158; BP diastolic 43–73
[2021-06-16 05:09] LABS: ABSOLUTE NEUTROPHILS 4.6 thou/uL (1.4-8.2); HEMATOCRIT 31.3 % (37.0-47.0); HEMOGLOBIN 10.5 gm/dL (12.0-15.0); LYMPHOCYTES 5.6 % (24.0-44.0); MCH 30.7 pg (26.0-34.0); MCHC 33.7 g/dL (28.0-37.0); MCV 91.3 fL (80.0-100.0); MONOCYTES 4.4 % (1.0-8.0); PLATELET COUNT 161 thou/uL (150-400); RBC 3.42 mil/uL (4.20-5.00); RDW 15.7 % (10.5-14.5); WBC 5.5 thou/uL (4.0-11.0)
[2021-06-16 05:16] LABS: ANION GAP 14 mmol/L (7-16); BUN 39 mg/dL (7-18); CALCIUM 7.1 mg/dL (8.5-10.1); CHLORIDE 107 mmol/L (98-107); CO2 22 mmol/L (21-32); CREATININE 1.4 mg/dL (0.6-1.0); DIRECT BILIRUBIN < 0.1 mg/dL (<0.1-0.2); GLUCOSE 180 mg/dL (74-106); POTASSIUM 3.2 mmol/L (3.5-5.1); SGOT 114 U/L (15-37); SGPT 148 U/L (30-65); TOTAL BILIRUBIN 0.3 mg/dL (0.2-1.0); TOTAL PROTEIN 4.6 g/dL (6.4-8.2)
[2021-06-16 05:17] LABS: CREATININE 1.4 mg/dL (0.6-1.0)
[2021-06-16 05:24] LABS: D-DIMER 4.7 ug/mLFEU (0.19-0.50); INR 1.14; PROTIME 12.3 Seconds (10.5-12.1)
[2021-06-16 05:25] LABS: SODIUM 143 mmol/L (136-145)
--- NOTE | 2021-06-16 07:36 | NUR ---
Pt TRANSFERRED TO ICU. WILL PLACE ON HOLD AND AWAIT NEW ORDERS WHEN APPROPRIATE
[2021-06-16 08:10] LABS: BE(vivo) 1.5 mmol/L (-2 to +3); HCO3 23.8 mmol/L (22.0-26.0); PCO2 30.4 mmHg (35.0-45.0); PO2 64.4 mmHg (80.0-100.0); pH 7.512 (7.360-7.450); sO2 94.6 % (92.0-98.0)
--- NOTE | 2021-06-16 18:20 | NUR ---
PATIENT REMAINS ON OPTIFLOW THROUGH OUT THE SHIFT. DESATS RAPIDLY WHEN OXYGEN REMOVED. PATIENT BECOME RESTLESS THIS MORNING AND WAS PULLING AT CORDS, REMOVING OXYGEN. ORDER TO START PRN IF CONTINUES TO INTERFERE WITH LINES. AT THIS TIME PATIENT IS CALM AND REDIRECTABLE. POOR ORAL INTAKE. ENCOURAGED SUPPLEMENT DRINKS. CENTRAL LINE PLACE TO RIGHT IJ BY IV NURSE WITH CONFIRMATION OF PLACEMENT. PANDYA PATENT. PATIENT AWARE THAT IS HERE ADMITTED TO THE 3RD FLOOR AFTER CONVERSATION WITH DAUGHTER. DENIES ANY NEEDS OR CONCERNS AT THIS TIME.
--- NOTE | 2021-06-16 19:51 | NUR ---
VAT PLACED RTLIJ
[2021-06-17] VITALS (23 sets, daily range): BP systolic 126–159; BP diastolic 41–60
[2021-06-17 06:36] LABS: HEMATOCRIT 29.6 % (37.0-47.0); MCH 30.6 pg (26.0-34.0); MCHC 33.8 g/dL (28.0-37.0); MCV 90.6 fL (80.0-100.0); RBC 3.27 mil/uL (4.20-5.00); RDW 15.3 % (10.5-14.5); WBC 5.7 thou/uL (4.0-11.0)
[2021-06-17 06:54] LABS: CALCIUM 7.4 mg/dL (8.5-10.1); CREATININE 1.3 mg/dL (0.6-1.0); POTASSIUM 3.3 mmol/L (3.5-5.1)
[2021-06-17 07:01] LABS: CREATININE 1.4 mg/dL (0.6-1.0); DIRECT BILIRUBIN 0.1 mg/dL (<0.1-0.2); TOTAL BILIRUBIN 0.3 mg/dL (0.2-1.0)
--- NOTE | 2021-06-17 09:41 | NUR ---
Chart review, opened case. Covid +. Isolation precaution. Noted requiring optiflow for resp support. Cm visited with her daughter damian via phone call, intro to cm and lorap. Reported that sandhya lives at home in three-story , o steps to enter, 6 steps to living room, 8 to bedroom and 8 to garage . 3 of the 5 that live there have coivd. she and sig other chelsi had covid vaccine in january 2021. Both are here at [facility]. Lucretia independent when feeling ok. cooked little breakfast for chelsi in mornings. No dme. Manage own medications. No longer drives. shante in past. Active with yard work still. No rehab in the past.
--- NOTE | 2021-06-17 09:47 | NUR ---
PT REFUSING CARES THIS AM. REFUSING FOOD AND PO MEDICATION. SHE IS PUSHING STAFF AWAY AND SAYING LEAVE ME ALONE. ONEL MISTRY ALSO TRIED TO GET PT TO TAKE PO MEDICATION BUT PATIENT STILL REFUSED. DR Marii MORA INSTRUCT TO STOP PRECEDEX GTT AND HE WILL ORDER SL MEDICATION FOR AGITATION. DR. MORA INSTRUCTED ME TO CALL AROUND NOON TO GIVE UPDATE ON PT AND SHE MAY MOVED TO 3W. WILL CONTINUE TO ASSESS.
--- NOTE | 2021-06-17 12:19 | NUR ---
AFTER DISCONTINUING PRECEDEX PT BECAME VERY CONFUSED TRYING TO GET OUT OF BED, HITTING STAFF, TAKING OFF HIFLO NC. TALK TO DR. MORA AND INSTRUCTED TO RESTART PRECEDEX GTT.
[2021-06-18] VITALS (17 sets, daily range): BP systolic 128–181; BP diastolic 38–56
[2021-06-18 05:18] LABS: HEMATOCRIT 29.4 % (37.0-47.0); HEMOGLOBIN 10.2 gm/dL (12.0-15.0); MCH 31.6 pg (26.0-34.0); MCHC 34.8 g/dL (28.0-37.0); MCV 90.6 fL (80.0-100.0); RBC 3.24 mil/uL (4.20-5.00); RDW 15.7 % (10.5-14.5); WBC 6.4 thou/uL (4.0-11.0)
[2021-06-18 06:25] LABS: CREATININE 1.4 mg/dL (0.6-1.0); PHOSPHORUS 3.4 mg/dL (2.5-4.9); TOTAL BILIRUBIN 0.3 mg/dL (0.2-1.0); TOTAL PROTEIN 4.3 g/dL (6.4-8.2)
[2021-06-18 06:39] LABS: POTASSIUM 2.8 mmol/L (3.5-5.1)
--- NOTE | 2021-06-18 11:49 | NUR ---
RN SPOKE WITH PT'S DAUGHTER MARK. MARK STATES PT'S SIGNIFICANT OTHER IS ON 3W IN ROOM 354. RN GAVE PT UPDATE AND ANSWERED QUESTIONS. MARK REQUESTS THAT WE ASK THE PT TO CALL HER THIS AFTERNOON IF ABLE TO.
--- NOTE | 2021-06-18 18:27 | NUR ---
PT HAS REMAINED ON OPTI FLOW HIGH FLOW NC TODAY AT 40l AT 60%. PT REFUSED ALL PO MEDS EXCEPT LIQUID ATIVAN. PT REFUSED ALL FOOD INTAKE WELL. PT APPEARS TO BE ANIXIOUS AT TIMES AND IS ON PRECEDEX GTT. PT REFUSED TO TALK THIS AM BUT AFTER SOME TIME PT DID TELL RN HER NAME AND HER BIRTHDATE. PT TURNED Q2 HOURS BUT DOES NOT LIKE TO BE TURNED.
[2021-06-19] VITALS (20 sets, daily range): BP systolic 95–193; BP diastolic 41–86
--- NOTE | 2021-06-19 02:55 | NUR ---
ASSUMED CARE OF PATIENT AT 1900. PATIENT REFUSES MEDICATION, ORAL CARE, TURNS. SHE MOANS BUT REFUSES TO ANSWER QUESTIONS. O2 TITRATED TO 10L. PRECEDEX GTT OFF, SHE IS NOT TRYING TO REMOVE O2 OR GET OUT OF BED. DAUGHTER OLEG CALLED THIS RN FOR UPDATE. THIS RN ALSO USED THE PATIENTS CELL PHONE TO CALL DAUGHTER AND SON. BOTH DAUGHTER AND DAUGHTER IN LAW ARE EXTREMELY UPSET WITH ISOLATION PROTOCOL. EDUCATED THEM ON HOSPITAL POLICY REGARDING COVID ISOLATION AND VISITATION. EMAIL SENT TO CEPHALOMETRIC TRACER AND CNO REGARDING THIS. PATIENT HAS PROGRESSED SLIGHTLY TOWARDS GOAL.
[2021-06-19 05:25] LABS: HEMATOCRIT 28.3 % (37.0-47.0); HEMOGLOBIN 9.8 gm/dL (12.0-15.0); MCH 31.5 pg (26.0-34.0); MCHC 34.5 g/dL (28.0-37.0); MCV 91.2 fL (80.0-100.0); RBC 3.1 mil/uL (4.20-5.00); RDW 15.6 % (10.5-14.5); WBC 7.1 thou/uL (4.0-11.0)
[2021-06-19 05:37] LABS: D-DIMER 2.69 ug/mLFEU (0.19-0.50); INR 1.1; PROTIME 11.9 Seconds (10.5-12.1)
[2021-06-19 05:39] LABS: MAGNESIUM 2.2 mg/dL (1.8-2.4); PHOSPHORUS 2.9 mg/dL (2.5-4.9)
[2021-06-19 05:42] LABS: ALBUMIN 1.9 g/dL (3.4-5.0); CALCIUM 7.1 mg/dL (8.5-10.1); CREATININE 1.2 mg/dL (0.6-1.0); TOTAL BILIRUBIN 0.3 mg/dL (0.2-1.0); TOTAL PROTEIN 4.2 g/dL (6.4-8.2)
[2021-06-19 05:51] LABS: POTASSIUM 2.6 mmol/L (3.5-5.1)
--- NOTE | 2021-06-19 07:47 | HC ---
[facility] [place] [address] CONSULTATION Name: FELSIHA VICENTE Room #: 236-P ADM IN M.R.#: [id number] Admission: 06/12/21 Attend Phys: Burt Stern MD Discharge: Date of : 38 Report #: [id number] THIS REPORT FOR: cc: Ann Cowan Christine L. DO McKittrick, Richard James MD ~ cc: Burt Stern MD, Exam date was 06/16/2021. Please note, I thought I had dictated this note yesterday on date of exam on 06/16/2021. When checked on the chart today, I do not see record of it, so this documentation is for that encounter. REASON FOR CONSULT: History of CLL, now with COVID pneumonia. HISTORY OF PRESENT ILLNESS: The patient is an 80-year-old female followed by myself with history of CLL, on Imbruvica who was admitted with COVID pneumonia. Note that her is admitted upstairs I believe with similar, but not as severe infection. The patient is currently in ICU, is somewhat delirious. The patient cannot provide a history. I talked with the nurse about her case. I also talked with several physicians including Infectious Disease. PAST HISTORY: Notable for the history of CLL diagnosed in about 2018. The patient began therapy in June 2002 with Imbruvica 420 mg every day. Note in the past she also has been iron deficient, received IV iron. She also has a history of hypertension, chronic diastolic heart failure, peripheral vascular disease, hyperlipidemia, fibromyalgia, and I believe also carotid artery disease. SOCIAL HISTORY: She is retired. I do not recall that she is a smoker or drinks alcohol. PHYSICAL EXAMINATION: GENERAL: The patient appears her stated age. She is an elderly female in the ICU with high-flow oxygen on monitors. VITAL SIGNS: At the time of her exam, her vitals were approximately blood pressure 144/48, O2 sat 98% with supplementation, respirations 18, pulse 69, height is 5 feet 1 inch, 154.9 cm. Weight is 130 pounds or 58.97 kilograms. NEUROLOGIC: She is not able to answer questions. She appears somewhat uncomfortable. Does not seem to be in pain, just uncomfortable. LUNGS: Have some central rhonchi. HEART: Regular rate. LYMPHATICS: No enlarged lymph nodes in the supraclavicular, cervical, axillary, or inguinal region. [address] [address] CONSULTATION Name: FELISHA VICENTE Room #: 236-P [facility] IN .R.#: [id number] Admission: 06/12/21 Attend Phys: Burt Stern MD Discharge: Date of : 38 Report #: [id number] ABDOMEN: Without masses. EXTREMITIES: Without clubbing, cyanosis. There is some trace edema noted. SCDs are in place. MEDICATIONS: Include budesonide respiratory therapy b.i.d., dexmedetomidine 400 mcg IV titrate, ipratropium and albuterol respiratory therapy q.4 hours p.r.n., insulin on a sliding scale, morphine p.r.n., Tylenol p.r.n., ceftriaxone 1 gram q.24 h., thiamine 100 mg daily, zinc sulfate 220 mg daily, vitamin D 2000 units daily, famotidine 10 mg b.i.d., carvedilol 12.5 b.i.d., methylprednisolone 40 mg q. 8 h. scheduled, heparin 5000 units t.i.d., amlodipine 5 b.i.d., remdesivir 100 mg at bedtime. ASSESSMENT AND PLAN:. 1. 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 It seems reasonable to hold at this time as the patient is recovering. I would be supportive of this. We would like to get her back on it. She has been responding when able to. 2. COVID-19 positive pneumonia. Continues with remdesivir and steroids, but also on a bacterial infectious. 3. Respiratory failure. Per others on high flow oxygen. 4. Anemia. Transfuse to keep hemoglobin above 7. 5. Hypertension. Meds per others. 6. Acute kidney injury. Monitor fluids and medications. 7. Chronic diastolic heart failure. Meds per others. 8. Peripheral vascular disease. Management per others. 9. Hyperlipidemia. Management per others. 10. Possible carotid artery disease by history. Management per others. We will follow with you. <ELECTRONICALLY SIGNED> By: Yann Butterfield MD 06/19/21 0747 0805 [id number] Yann Butterfield MD /nt
[2021-06-19 08:42] LABS: T-SPOT.TB Negative
--- NOTE | 2021-06-19 19:34 | NUR ---
ASSESSMENT CHARTED. PRN PAIN MED AND ANXIETY MED GIVEN WITH PARTIAL RELIEF. PT DESAT WITH ACTIVITY. RT TREATMENT PROVIDED ORDERED. COVID ISOLATION MAINTAINED.
--- NOTE | 2021-06-19 20:54 | NUR ---
ASSUMED CARE OF PATIENT AT 1900. PATIENT RESTLESS, MOANING, UNABLE TO BE REDIRECTED. CONTINUES TO REFUSE MEDS OR ORAL CARE. THIS RN CALLED PATIENT'S DAUGHTER AT 1999 DURING ASSESSMENT AND MED PASS. POC DISCUSSED WITH DAUGHTER ALL QUESTIONS ANSWERED, THIS RN PUT PATIENTS CELL PHONE ON SPEAKER SO THAT OLEG COULD SPEAK TO HER MOM.
[2021-06-20] VITALS (28 sets, daily range): BP systolic 147–192; BP diastolic 43–72
[2021-06-20 05:07] LABS: HEMOGLOBIN 9.7 gm/dL (12.0-15.0); MCH 31.6 pg (26.0-34.0); MCHC 34.6 g/dL (28.0-37.0); MCV 91.3 fL (80.0-100.0); RBC 3.06 mil/uL (4.20-5.00); RDW 16.2 % (10.5-14.5); WBC 8.6 thou/uL (4.0-11.0)
[2021-06-20 05:38] LABS: ALBUMIN 2.1 g/dL (3.4-5.0); CALCIUM 7.2 mg/dL (8.5-10.1); CREATININE 1.1 mg/dL (0.6-1.0); MAGNESIUM 2.3 mg/dL (1.8-2.4); PHOSPHORUS 2.9 mg/dL (2.5-4.9); TOTAL BILIRUBIN 0.3 mg/dL (0.2-1.0); TOTAL PROTEIN 4.4 g/dL (6.4-8.2)
--- NOTE | 2021-06-20 12:35 | NUR ---
0800HRS - JOE ROSENBAUM AND CHULA ADMINISTERED THIS AM. 1100HRS - PT IN BED RESTING. 1125HRS - DR. WASHINGTON INFORMED OF PT'S HIGH B/P THIS MORNING.
--- NOTE | 2021-06-20 13:48 | NUR ---
Chart reviewed during los and unite rounds. 11.5L high flow nasal cannula. COVID +. TPN for nutritional support. Note she cont to have periods or restlessness and refuses medication and cares at time. No anticipated dc, will cont following as needed for dc needs.
--- NOTE | 2021-06-20 14:55 | NUR ---
1450HRS - FAMILY MEMBER CONTACTED. MARIFER MATTER INFORMED AND UPDATE OF PT'S CONDITION AND STATUS.
--- NOTE | 2021-06-20 19:10 | NUR ---
1455HRS - TELEPHONE CALL WITH MARIFER MATTER OVER VISITATION POLICY. PT FAMILY MEMBER WAS INFORMED OF THE NEW VISITATION POLICY. MARIFER NOTED THAT HER FAMILY WILL BE GOING TO THE HOSPITAL ADMINISTRATION OVER THE VISITATION POLICY.
--- NOTE | 2021-06-20 23:54 | NUR ---
ASSUMED CARE OF PATIENT AT 1900. THIS RN CALLED DAUGHTER OLEG ON PATIENTS CELL PHONE AT 1999 AND GAVE AN UPDATE, WELL TIME FOR HER TO TALK TO HER MOM. PATIENT REMAINS RESTLESS, MOANING, UNCOOPERATIVE IN CARES. IS LETTING THIS RN CRUSH MEDS AND PUT IN ENSURE, SHE WILL TAKE SMALL SIPS. O2 REMAINS ABOVE 96%. IS NOT ON PRECEDEX, HAS BEEN OFF FOR SEVERAL DAYS. PRN MORPHINE AND HALDOL STILL NEEDED AT TIMES FOR RESTLESSNESS MOANING IF SHE IS IN PAIN. THIS RN ATTEMPTED TO CALL SIGNIFICANT OTHER, BUT THERE WAS NO ANSWER.
[2021-06-21] VITALS (17 sets, daily range): BP systolic 139–186; BP diastolic 40–112
--- NOTE | 2021-06-21 10:56 | EKG ---
[address] [place] [address] ELECTROCARDIOGRAM REPORT Name: FELISHA VICENTE Room #: 236- ADM IN M.R.#: [id number] Admission: 06/12/21 Attend Phys: Burt Stern MD Discharge: Date of : 38 Report #: [id number] [facility] Test Date: 2021-06-21 Test Time: 10:13:00 Pat Name: FELISHA VICENTE Department: Room: 236 Gender: F Director Of Vital Statistics: : 1940 Requested By: Anoop Callejas Order Number: [id number] MD: Lennox Walters Measurements Intervals [place] Rate: 79 P: 49 [place]: 168 QRS: -15 QRSD: 140 T: 140 QT: 443 QTc: 508 Interpretive Statements Sinus rhythm Left bundle branch block Compared to ECG 06/12/2021 17:09:15 No significant changes Electronically Signed On 06-21-2021 10:55:47 CDT by Lennox Walters [email or web address] <ELECTRONICALLY SIGNED> By: Lennox Walters MD, [facility] 06/21/21 1055 1013 1013 Lennox Walters MD, FACC /EPI
--- NOTE | 2021-06-21 15:38 | NUR ---
PT TRANSFER TO UNIT. RESTLESS, ACKNOWLEDGED NAME, NOT OTHERWISE ORIENTED. PT REFUSES TO OPEN EYES. R IJ PATENT, INFUSING TPN. PANDYA IN PLACE, CATH LOCK SECURED. BELONGINGS PUT IN PT CLOSET.
[2021-06-22 00:35] VITALS: BP 184/63
[2021-06-22 04:48] VITALS: BP 175/80
--- NOTE | 2021-06-22 06:03 | NUR ---
Pt. very restless at beginning of shift , disconnecting O2,tele monitor and taking off gown.She has been moaning.Repositioned for comfort and morphine 1mg IV given with some relief. O2 at 10L/HF with O2 sat in the upper 90's when she's at rest and not restless. TPN dc'd at HS per order. Pt. took pills with applesauce. Cont. on enhanced precaution, afebrile. Daughter called to get an update on pt. Pt. slept fair but once awake she is restless and moaning.
[2021-06-22 08:12] VITALS: BP 141/93
[2021-06-22 10:51] VITALS: BP 158/57
[2021-06-22 15:32] VITALS: BP 152/60
--- NOTE | 2021-06-22 18:23 | NUR ---
PT VERY RESTLESS AT START OF SHIFT, PRN MEDICATION GIVEN. PT EASILY AROUSABLE FOR PO INTACT, CHOPPED MEAL APPEARS TO BE TOO HARD TO CHEW. PT ABLE TO INTAKE APPLESAUCE AND DRINK ENSURE WITH EASE. UPDATED SPOUSE, RT DECREASED OXYGEN TO 8.0L VIA NC. PT NEEDS FREQUENT REMINDERS TO LEAVE TUBING IN NOSE.
[2021-06-22 19:50] VITALS: BP 179/63
[2021-06-23 04:17] VITALS: BP 163/68
--- NOTE | 2021-06-23 05:44 | NUR ---
ASSUME CARE 1900. PT/VITALS STABLE. BP RUNS HIGH/HYDRALAZINE FOR SBP > 160. A/O TO PERSON AND PLACE. FORGETFULNESS AND EPISODES OF CONFUSION NOTED. CAN COMMUNICATE NEEDS AND NEEDS REDIRECTION WELL. ON 6L HIGH FLOW AND TOLERATING WELL. SATS AT 9.%. ASSESSMENT CHARTED. PROGRESSING SLOWLY TOWARDS POC. PLAN IS TO CONTINUE TO MONITOR AND MANAGE RESPIRATORY FUNCTION. WILL CONTINUE TO MONITOR AND FOLLOW WITH POC
[2021-06-23 07:38] VITALS: BP 153/76
[2021-06-23 11:55] VITALS: BP 162/64
--- NOTE | 2021-06-23 15:25 | NUR ---
SW reviewed chart and spoke with nursing and attending physician. Pt was transferred to from ICU. Remains in Enhanced Isolation due to COVID. Pt is afebrile and on IV steroids and IV lasix. Pt was requiring 8L of O2 this morning and is now requiring 15L. PT/OT evals to be ordered when pt is able to participate. SW is following to assist as needed with discharge planning.
[2021-06-23 15:57] VITALS: BP 161/62
--- NOTE | 2021-06-23 19:27 | NUR ---
RN ASSUMED PT'S CARE AT 0700-1900PN, PT IS CONFUSED, AND PT DOES NOT FOLLOW COMMANDS, PT IS CONTINUING IV ABX AND TREATING COVID MEDICATIONS, PT'S O2 HAS CHANGED TO OFTLOW O2 35L/MIN/NC WITH O2 50% TO KEEP PT'S O2SAT >90%, BUT PT IS AGITATION TO REMOVE O2 TUBE, RN HAS PUT MITTENS TO KEEP O2 TUBE IN PLACE , RN HAS UPDATED PT'S IMFORMATIONS TO PT'S FAMILY, RN HAS REPORTED TO NEXT SHIFT TO KEEP EYE ON PT.
[2021-06-23 19:54] VITALS: BP 153/63
[2021-06-23 21:37] LABS: BE(vivo) 2.1 mmol/L (-2 to +3); HCO3 23.9 mmol/L (22.0-26.0); PCO2 27.9 mmHg (35.0-45.0); pH 7.551 (7.360-7.450)
[2021-06-23 21:38] LABS: PO2 55.9 mmHg (80.0-100.0)
--- NOTE | 2021-06-23 22:40 | NUR ---
PT RESTLESS AGITATED WITH MITTENS INTACT PT PULLING OFF OPTI FLOW. PROVIDER UPDATED. OPTIFLOW NEEDS INCREASED TO 99%, PROVIDER AND PULMONARY NOTIFIED. ABG ORDERED, PT NOW ON BIPAP. PRN MEDS PROVIDED PT RESTING AND COMPLIANT. PANDYA TO CASH. BED ALARM ON. IVF INTACT. CHARGE NURSE, PROVIDER UPDATED. DAUGHTER FAMILY UPDATED. DAUGHTER EXPRESSED DISLIKE FOR ANTIPSYCHOTIC MEDICATIONS RELATED TO BAD DREAMS AND CHANGE IN BEHAVIOR. DAUGHTER EDUCATED ON PRIORITY TO KEEP PT CALM RELAXED AND MAINTAIN RESPIRATORY STATUS. PROVIDER UPDATED RE DAUGHTERS STATEMENTS RE MEDICATION AND WANTING A CONFERENCE CALL WITH HER AND HER SISTER IN LAW.
--- NOTE | 2021-06-23 23:03 | NUR ---
PT RESTING WITH BIPAP, CONTINUOUS PULSE OX. LUNGS COARSE. PANDYA TO DD. SHIRIN DARK PURPLE EDEMATOUS, WEEPING BLOOD FROM LAB DRAW, DRESSING APPLIED. PALE SKIN TONE. MITTENS INTACT. BED ALARM ON. CENTRAL LINE INTACT.
[2021-06-24 04:55] LABS: ABSOLUTE NEUTROPHILS 17.6 thou/uL (1.4-8.2); BASOPHILS 0.1 % (0.0-2.0); HEMATOCRIT 27.4 % (37.0-47.0); HEMOGLOBIN 8.8 gm/dL (12.0-15.0); LYMPHOCYTES 1.9 % (24.0-44.0); MCH 30.1 pg (26.0-34.0); MCHC 32.1 g/dL (28.0-37.0); MCV 93.8 fL (80.0-100.0); MONOCYTES 3.7 % (1.0-8.0); PLATELET COUNT 131 thou/uL (150-400); POLYS 94.3 % (36.0-66.0); RBC 2.92 mil/uL (4.20-5.00); RDW 16.4 % (10.5-14.5); WBC 18.7 thou/uL (4.0-11.0)
--- NOTE | 2021-06-24 04:58 | NUR ---
PT PROVIDED PRN FOR AGITATION AND PAIN THROUGHOUT THE NIGHT. DUE TO PT RESTLESS, KICKING LEGS, MOVING ARMS WITH MITTENS PUSHING OFF BIPAP, CRYING INTERMITTENTLY.
[2021-06-24 05:11] LABS: ALBUMIN 2.4 g/dL (3.4-5.0); CALCIUM 7.6 mg/dL (8.5-10.1); CREATININE 1.1 mg/dL (0.6-1.0); POTASSIUM 3.8 mmol/L (3.5-5.1); TOTAL BILIRUBIN 0.8 mg/dL (0.2-1.0); TOTAL PROTEIN 4.5 g/dL (6.4-8.2)
[2021-06-24 05:37] VITALS: BP 189/96
--- NOTE | 2021-06-24 06:20 | NUR ---
PT RESTLESS AGITATED, KICKING LEGS, CRYING, USING MITTENS TO PUSH OFF BIPAP, PULLING AT IV LINES. PRNS PROVIDED. BP ELEVATED PRN IV PROVIDED. WILL HAVE DAY SHIFT HAVE F/U ERICKSON ABDI PURPLE EDEMA ARM, MENTIONED TO PROVIDER VICTIM WITNESS ADMINISTRATOR AND PULMONARY. US PREVIOUSLY COMPLETED.
[2021-06-24 07:33] VITALS: BP 193/76
[2021-06-24 11:13] VITALS: BP 181/73
[2021-06-24 11:44] LABS: INR 1.18; PROTIME 12.8 Seconds (10.5-12.1)
[2021-06-24 15:29] VITALS: BP 169/70
--- NOTE | 2021-06-24 15:53 | NUR ---
SW reviewed chart and spoke with nursing and attending physician. Pt remains in Enhanced Isolation due to COVID. Pt is afebrile and requiring optiflow. Pt is on IV abx, IV steroids and IV lasix. Pt was placed in bilateral wrist restraints due to pulling at lines. Per attending physician, pt's dtr-in-law, who is an consumer electronics merchandiser, will be visiting pt at bedside today. Pt will need new orders for therapy when able to participate. ANKUR is following to assist as needed with discharge planning.
[2021-06-24 19:05] VITALS: BP 186/66
[2021-06-24 19:13] VITALS: BP 177/70
--- NOTE | 2021-06-24 19:38 | NUR ---
PT ON OPTI FLOW SATS 83 TO 86, RT NOTIFIED PLACED ON BIPAP 100% SAT AT 99%. BP ELEVATED AND PRN PROVIDED. RR 24. PT CRYING RESTLESS PRN FOR PAIN PROVIDED, PT RELAXED BP DECREASED AND RR DECREASED. MAINTAINING SAT AT 99% ON BIPAP. CHARGE AND RN MDS COORDINATOR UPDATED.
--- NOTE | 2021-06-24 19:51 | NUR ---
DELIVERER OUTSIDE NOTIFIED PT ON BIPAP NOW AND NEEDS TO BE TRANSFERRED TO ICU PER DR CORONADO. LUNGS CRACKLES, BIPAP. YA BRICEÑO TO DD. BS ACTIVE. SHIRIN PURPLE EDEMA, BRUISING ON ABD. PALE SKIN TONE. ALERT TO ASK FOR WATER NOT ABLE TO ANSWER QUESTIONS. MOUTH SWAB PROVIDED.
--- NOTE | 2021-06-24 19:52 | NUR ---
8552 - DR. CORONADO UPDATED VIA TELEPHONE ABOUT RESPIRATORY STATUS - PATIENT ON BIPAP. ORDERS TO SEND PT ICU IF PT CAN NOT COME OFF OF BIPAP TO OPTIFLOW DUE TO PATIENT BEING IN MITTEN RESTRAINTS. PT CAN'T BE IN RESTRAINTS & ON BIPAP PER DR. CORONADO'S ORDERS. 0800 - RT AT BEDSIDE TO TRANSITION PATIENT TO OPTIFLOW ATT. 1330 - PATIENT'S DIL MARIFER MATTER AND DR. CORONADO AT BEDSIDE. ORDERS FOR PPN TO BE STARTED. ~1530 - DR. FRAZIER UPDATED AT BEDSIDE, ORDERS TO NOT ALLOW PATIENT ON BIPAP WITH MITTEN RESTRAINTS AND TO TRY TO NOT GIVE SEDATIVES IF NOT NEEDED TO HELP WITH MENTAL STATUS.
--- NOTE | 2021-06-24 20:11 | NUR ---
NO ICU BEDS PER CODIFIER, PROVIDER BLINDSTITCH LINING FELLER NOTIFIED.
--- NOTE | 2021-06-24 22:02 | NUR ---
PRN PROVIDED FOR RESTLESS AND AGITATION, PT RELAXING, MITTENS REMOVED. SUPERVISOR PUBLICATIONS UPDATED. CALLED AND LEFT VOICEMAIL FOR MARIFER MATTER IN ATTEMPT TO UPDATE RE BIPAP AT 100%. PULM AND ID UPDATED RE PT. DRESSING ON LEFT ARM REAPPLIED DUE TO SATURATION, DRAINAGE SEROSANG.
--- NOTE | 2021-06-24 22:12 | NUR ---
PT WILL BE TRANSFERRED TO [facility] IN ICU.
--- NOTE | 2021-06-24 23:59 | NUR ---
INCREASE IN RESTLESS BEHAVIORS, REACHING AT BIPAP, KICKING LEGS, PULLING ON LINES. PRN PROVIDED. RESPIRATORY UPDATED RE O2 SAT IN LOW 90%. O2 BIPAP DOWN TO 70.
[2021-06-25] VITALS (26 sets, daily range): BP systolic 103–178; BP diastolic 35–86
--- NOTE | 2021-06-25 00:07 | NUR ---
TALKED WITH DAUGHTER IN LAW MARIFER. UPDATED RE TRANSFER TO ICU, 239. EXPLAINED INCREASE IN O2 NEEDS ON 100% BIPAP. NURSE ASKED IF FAMILY MEMBERS HAD STARTED TO THINK ABOUT CODE STATUS AND END OF LIFE PLANS. DAUGHTER IN LAW STATED SHE WOULD TALK TO HER AND SISTER IN LAW IN THE AM.
--- NOTE | 2021-06-25 00:17 | NUR ---
PER HANDBAG PARTS CUTTER REQUEST NOTIFYING DR FRAZIER OF HOSPITALIST REQUEST FOR PT TO BE IN ICU, R/T NEEDING BIPAP AND RESTRAINTS.
--- NOTE | 2021-06-25 00:27 | NUR ---
RESPIRATORY INCREASED BIPAP TO 80% INCREASE O2 SATURATION TO 92%.
--- NOTE | 2021-06-25 01:50 | NUR ---
REPORT CALLED TO [facility]. PT HAS BELONGINGS GATHERED FOR TRANSFER INCLUDING DENTURES AND CELL PHONE.
[2021-06-25 02:40] LABS: HEMATOCRIT 26.6 % (37.0-47.0); HEMOGLOBIN 8.5 gm/dL (12.0-15.0); MCH 30.3 pg (26.0-34.0); MCV 94.5 fL (80.0-100.0); RBC 2.82 mil/uL (4.20-5.00); WBC 20.5 thou/uL (4.0-11.0)
[2021-06-25 03:28] LABS: CALCIUM 6.9 mg/dL (8.5-10.1); CREATININE 1.1 mg/dL (0.6-1.0); POTASSIUM 3.4 mmol/L (3.5-5.1)
[2021-06-25 04:19] LABS: BE(vivo) -3.4 mmol/L (-2 to +3); HCO3 19.2 mmol/L (22.0-26.0); PCO2 26.9 mmHg (35.0-45.0); PO2 63.8 mmHg (80.0-100.0); pH 7.471 (7.360-7.450)
--- NOTE | 2021-06-25 04:29 | NUR ---
NECKLACE AND 3 GOLD RINGS REMOVED FROM PT'S BODY AND PLACED IN POCKET OF HER PURSE.
--- NOTE | 2021-06-25 04:37 | NUR ---
RECEIVED REPORT FROM 3W RN. PT ARRIVED TO ICU AROUND 0220. SHE WAS INITIALLY RESTLESS, TACHYPENIC (RR 30S-40S), AND TRYING TO PULL OFF BIPAP. HALDOL GIVEN WITHOUT MUCH IMPROVEMENT IN BEHAVIOR. PT ALSO NOTED TO BE GRUNTING AND MOANING WHILE ON BIPAP. HYDRALAZINE GIVEN FOR HTN. NOTIFIED DR FRAZIER OF PT'S RESP STATUS AND BEHAVIOR. ORDERS RECEIVED TO OBTAIN ABG AND START PRECEDEX GTT. PT IS CURRENTLY RESTING QUIETLY ON BIPAP WHILE ON PRECEDEX GTT. SHE IS NO LONGER GRUNTING OR PULLING AT LINES/BIPAP. RR IMPROVED. DR FRAZIER UPDATED. PT NOT PROGRESSING WELL TOWARD POC GOALS. WILL MONITOR FURTHER.
--- NOTE | 2021-06-25 14:29 | NUR ---
voice message from pablito schmitt called her back and she was in meeting. She will call back when able to visit.
[2021-06-26] VITALS (51 sets, daily range): BP systolic 92–180; BP diastolic 37–108
[2021-06-26 03:47] LABS: HEMATOCRIT 23.9 % (37.0-47.0); HEMOGLOBIN 7.5 gm/dL (12.0-15.0); MCH 30.4 pg (26.0-34.0); MCHC 31.4 g/dL (28.0-37.0); MCV 96.7 fL (80.0-100.0); RBC 2.47 mil/uL (4.20-5.00); RDW 17.5 % (10.5-14.5); WBC 11.9 thou/uL (4.0-11.0)
[2021-06-26 03:54] LABS: CALCIUM 7.3 mg/dL (8.5-10.1); CREATININE 1.1 mg/dL (0.6-1.0)
--- NOTE | 2021-06-26 07:16 | EKG ---
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
--- NOTE | 2021-06-26 08:30 | NUR ---
ASSUMMED CARE OF THIS PATIENT FROM THE NIGHT NURSE. PATIENT PULLING OFF BIPAP DESATS RAPIDLY AND HEART RATE DROPPED DOWN INTO THE LOWER 20'S. HEART RATE AND O2 SAT IMPROVED ONCE PLACED BACK ON BIPAP. EYES ARE GLAZED. RING ON RT HAND RING FINGER, SILVER COLOR WITH STONE, REMOVED FINGERS ARE SWOLLEN AND PLACED ON THE COUNTER.
--- NOTE | 2021-06-26 12:00 | NUR ---
SPOKE WITH GRANDDAUGHTER AND UPDATED HER ON THE PATIENT'S STATUS. STATED THAT SHE WOULD SPEAK TO THE FAMILY CONCERNING THE POC. WARMING BLANKET PLACED ON PATIENT.
[2021-06-26 12:11] LABS: % SATURATION 54 % (20-39); IRON 91 ug/dL (50-170); TIBC 167 ug/dL (250-450)
[2021-06-26 12:38] LABS: FOLIC ACID 5.8 ng/mL (8.6-58.9)
--- NOTE | 2021-06-26 17:00 | NUR ---
pt daughter in law called. Update given. states her agrees to DNR but she needs to talk to someone else in the family. Emotional support given.
--- NOTE | 2021-06-26 19:57 | NUR ---
End of shift note. Pt 02 sat better on L side. 98-99%. BP waxing and weaning. No effect on moaning post fentanyl. Asiya waters remians on. daughter in law working on a possible DNR.
[2021-06-26 23:06] LABS: HEMOGLOBIN 7.7 g/dL (11.1-15.9)
[2021-06-27] VITALS (18 sets, daily range): BP systolic 120–187; BP diastolic 35–68
--- NOTE | 2021-06-27 04:50 | NUR ---
ASSUMED CARE OF PATIENT AT 2200. FOUND PATIENT TO BE ON CONTINUOUS BIPAP SETTINGS WERE SPONTANEOUS/ TIMED / RATE 14 100%. AT THE 0000 ROUND I DECREASED THE PATIENTS FIO2 TO 90% AND SHE HAS TOLERATED THE CHANGE- NO SIGNS OF DISTRESS.
[2021-06-27 13:23] LABS: HEMATOCRIT 27.5 % (37.0-47.0); HEMOGLOBIN 8.4 gm/dL (12.0-15.0); MCH 29.8 pg (26.0-34.0); MCHC 30.4 g/dL (28.0-37.0); MCV 98.2 fL (80.0-100.0); RBC 2.81 mil/uL (4.20-5.00); RDW 18.7 % (10.5-14.5)
[2021-06-27 13:26] LABS: WBC 31.5 thou/uL (4.0-11.0)
--- NOTE | 2021-06-27 15:45 | NUR ---
COVID +, cont. on enhanced isolation. Discussed during unite am rounds, cont. to wear face mask and shield uring rounds and los. Bipap, ppn for nutritional support. No anticipated dc over the weekend, will cont. following as needed for dc needs.
== END 2021-06-27 19:22 | DRG 177 ==
LOC: ER 13:50 → 3W 19:10 → EROBS 19:10 → 3W 06-13 09:22 → ICU 06-15 15:06 → 3W 06-21 15:18 → ICU 06-25 02:31
PROVIDERS: Hospitalist; Internal Medicine; Internal Medicine Hematology & Oncology; Internal Medicine Pulmonary Disease; Nurse Practitioner Family; Pediatrics; Specialist; ADMIT Hospitalist; ATTEND Hospitalist
DX: U07.1 COVID-19 (principal); J12.82 Pneumonia due to coronavirus disease 2019; I21.4 Non-ST elevation (NSTEMI) myocardial infarction; J80 Acute respiratory distress syndrome; G92 Toxic encephalopathy; N17.9 Acute kidney failure, unspecified; I50.32 Chronic diastolic (congestive) heart failure; C91.10 Chronic lymphocytic leukemia of B-cell type not having achieved remission; E46 Unspecified protein-calorie malnutrition; I13.0 Hypertensive heart and chronic kidney disease with heart failure and stage 1 through stage 4 chronic kidney disease, or unspecified chronic kidney disease; E87.2 Acidosis; I25.10 Atherosclerotic heart disease of native coronary artery without angina pectoris; E78.5 Hyperlipidemia, unspecified; I73.9 Peripheral vascular disease, unspecified; D64.9 Anemia, unspecified; F03.90 Unspecified dementia, unspecified severity, without behavioral disturbance, psychotic disturbance, mood disturbance, and anxiety; K75.9 Inflammatory liver disease, unspecified; R74.01 Elevation of levels of liver transaminase levels; Z66 Do not resuscitate; N18.30 Chronic kidney disease, stage 3 unspecified; I65.29 Occlusion and stenosis of unspecified carotid artery; M79.7 Fibromyalgia; S40.022A Contusion of left upper arm, initial encounter; D69.6 Thrombocytopenia, unspecified; R41.0 Disorientation, unspecified; Z95.5 Presence of coronary angioplasty implant and graft; Z90.49 Acquired absence of other specified parts of digestive tract; Z95.820 Peripheral vascular angioplasty status with implants and grafts; Z87.891 Personal history of nicotine dependence; Z68.23 Body mass index [BMI] 23.0-23.9, adult; X58.XXXA Exposure to other specified factors, initial encounter; Y93.89 Activity, other specified; Y92.89 Other specified places as the place of occurrence of the external cause; Y99.8 Other external cause status
CPT/HCPCS: 10078; 10779; 10879